=== PATIENT | female | born 1975 ===

== ENCOUNTER 2025-10-08 18:19 | Emergency (ER) | payer SELFPAY ==
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
[2025-10-08 18:51] VITALS: BP 198/89; PULSE 82; RESP 18; O2SAT 100; BMI 26.5
[2025-10-08 18:52] LABS: Add Manual Diff / Slide Review NO; Hematocrit 43.0 % (36-46); Hemoglobin 14.5 g/dL (12.0-16.0); Lymphocytes Absolute Auto 1900 /uL (1100-4500); Mean Corpuscular HGB Conc 33.7 % (30-36); Mean Corpuscular Hemoglobin 30.3 PG (26-34); Mean Corpuscular Volume 90.1 fL (80-100); Platelet Count 373 X10^3/uL (150-400)
--- NOTE | 2025-10-08 19:00 | PC.NURSE ---
belongings placed in secured locked area outside of room. pt in gown and own pants. pants check by donald darnell for objects in pockets.
[2025-10-08 19:05] LABS: Alanine Aminotransferase 45 IU/L (<35); Albumin 4.9 g/dL (3.5-5.0); Albumin Globulin Ratio 1.6 (1.0-2.8); Alkaline Phosphatase 76 U/L (38-126); Blood Urea Nitrogen 13 mg/dL (7-17); Calcium 9.3 mg/dL (8.4-10.2); Carbon Dioxide 25 mmol/L (22-32); Chloride 105 mmol/L (98-107); Estimated Glomerular Filt Rate > 60 mL/min (>60); Ethanol (ETOH) < 10 mg/dL (<10); Globulin 3.1 g/dL (1.7-4.1); Glucose 109 mg/dL (70-99); HEMOLYSIS < 15 (0-50); Potassium 3.2 mmol/L (3.4-5.1); Sodium 140 mmol/L (137-145); Total Protein 8.0 g/dL (6.3-8.2)
[2025-10-08 19:17] LABS: COVID19 -Nasal RAPID Negative (Negative)
[2025-10-08] MEDS: POTASSIUM CHLORIDE 20 MEQ TAB 40 MEQ PO (19:34)
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
[2025-10-08 19:53] LABS: TSH w/ Reflex to FT4 2.24 uIU/mL (0.47-4.68)
[2025-10-08 20:37] LABS: UR Morphine/Opiate cutoff 300 Negative (Negative); Ur Specific Gravity Normal (Normal); Urine MDMA Negative (Negative); Urine Methamphetamines Negative (Negative); Urine Tetrahydrocannabinol Positive (Negative); Urine Tricyclic Antidepressant Negative (Negative)
== END 2025-10-08 20:59 | disposition home or self-care (01) ==
PROVIDERS: Emergency Provider Emergency Medicine
DX: F41.9 Anxiety disorder, unspecified (principal)
CPT/HCPCS: 80053; 80305; 80320; 81003; 84443; 85025; 87635; 99283